=== PATIENT | male | born 1975 | race Caucasian/White ===

== ENCOUNTER 2016-09-16 18:29 | Emergency (ER) | payer MEDICAID ==
[~2016-09-16] VITALS: Wt 98.6 kg
[2016-09-16] MEDS ORDERED: MECLIZINE 12.5 MG TAB PO ONE (20:30)
--- NOTE | 2016-09-16 20:41 | RADRPT ---
PROCEDURE: XR Chest. CLINICAL INDICATION: Chest pain TECHNIQUE: Single frontal view of the chest was obtained COMPARISON: None FINDINGS: The heart and mediastinum are within normal limits. The lungs are clear. There is no pleural effusion or pneumothorax. IMPRESSION: No acute disease. RPTAT: [facility] Physician Luisa Date Time Electronically viewed and signed by Leti Faust Physician on 09/16/2016 20:40 RS/
[2016-09-16] MEDS ORDERED: ALPRAZOLAM 0.25 MG TAB PO ONE (21:00)
[2016-09-16] MEDS ORDERED: MECL12.574 PO (21:00)
[2016-09-16 21:47] VITALS: BP 124/85; PULSE 70; RESP 18
--- NOTE | 2016-09-16 22:46 | ERD ---
ER Documentation Chief Complaint Date/Time DATE: 09/16/16 TIME: 22:44 Chief Complaint CHEST PAIN AND DIZZINESS SINCE LAST NIGHT. NO SOB NO DIAPHORESIS HPI Patient is a 41-year-old male with no medical problems who presents with dizziness. The patient had dizziness and chest pain. The symptoms started 1 day ago. Patient has not passed out. The patient feels anxious and has palpitations. The patient has had anxiety for the past 2 years. He also complains of a mild headache which was gradual in onset. Upon review of old medical records this is the patient's first visit to the emergency department. ROS All systems reviewed and are negative except as per history of present illness. Medications Home Meds Active Scripts Meclizine Hcl* (Antivert*) 12.5 Mg Tab, 25 MG PO Q6H Y for DIZZINESS, #20 TAB Prov:REMEDIOS MATAMOROS MD 09/16/16 Allergies Allergies: Coded Allergies: No Known Allergy (Unverified , 09/16/16) PMhx/Soc Medical and Surgical Hx: pt denies Surgical Hx Hx Psychiatric Problems: Yes (anxiety x 2 years) Hx Alcohol Use: Yes (previous drinker) Hx Substance Use: No Hx Tobacco Use: Yes (previous smoker) Smoking Status: Former smoker FmHx Family History: No diabetes Physical Exam Vitals Vital Signs Date Time Temp Pulse Resp B/P Pulse Ox O2 Delivery O2 Flow Rate FiO2 09/16/16 21:47 70 18 124/85 97 Room Air 09/16/16 20:16 68 18 135/90 97 Room Air 09/16/16 18:54 98.8 80 21 147/81 98 Physical Exam Const: No acute distress Head: Atraumatic Eyes: Normal Conjunctiva ENT: Normal External Ears, Nose and Mouth. Neck: Full range of motion..~ No meningismus. Resp: Clear to auscultation bilaterally Cardio: Regular rate and rhythm, no murmurs Abd: Soft, non tender, non distended. Normal bowel sounds Skin: No petechiae or rashes Back: No midline or flank tenderness Ext: No cyanosis, or edema Neur: Awake and alert, no slurred speech, no nerves II through XII are intact , strength is 5 out of 5 in all 4 extremities Psych: Anxious Results 24 hrs Laboratory Tests Test 09/16/16 20:42 Bedside Glucose 86mg/dL Current Medications Medications (Trade) Dose Ordered Sig/Casey Route PRN Reason Start Time Stop Time Status Last Admin Dose Admin Meclizine HCl (Antivert) 25 mg ONCE ONCE PO 09/16/16 20:30 09/16/16 20:31 DC 09/16/16 20:44 Alprazolam (Xanax) 0.5 mg ONCE ONCE PO 09/16/16 21:00 09/16/16 21:01 DC 09/16/16 21:38 Procedures/MDM EKG read by me: Rate/Rhythm: Regular rate and rhythm at a normal rate Intervals: Normal Impression: No evidence of ischemia or arrhythmia Chest x-ray negative per radiology. Accu-Chek is normal. Patient is a 41-year-old male with no medical problems who presents with dizziness and chest pain. EKG and chest x-ray were negative. I doubt acute coronary syndrome, pneumonia, pneumothorax, pulmonary embolism, or aortic dissection. I doubt stroke or intracranial mass or hemorrhage. The patient will be discharged home and can follow-up with the primary doctor within 24-48 hours. The patient will be given a prescription for meclizine. The patient can return sooner for any worsening symptoms. Departure Diagnosis: Primary Impression: Dizziness Additional Impression: Chest pain Chest pain type: unspecified Qualified Code: R07.9 - Chest pain, unspecified type Condition: Fair Patient Instructions: Chest Pain, Uncertain Cause, Dizziness, Unk Cause Referrals: Dr. Loya Additional Instructions: Call your primary care doctor TOMORROW for an appointment during the next 1-2 days.See the doctor sooner or return here if your condition worsens before your appointment time. REMEDIOS MATAMOROS MD Sep 16, 2016 22:46
== END 2016-09-16 21:47 | disposition home or self-care (01) ==
LOC: E/R 18:29
DX: R42 Dizziness and giddiness (principal); R07.9 Chest pain, unspecified; Z87.891 Personal history of nicotine dependence
CPT/HCPCS: 71010; 82962; Z7502; Z7610; 93005

== ENCOUNTER 2016-11-29 10:40 | Emergency (ER) | payer MEDICAID ==
[~2016-11-29] VITALS: Ht 167.6 cm; Wt 96.0 kg
[~2016-11-29 10:40] MED LIST: MECL12.574 PO
[2016-11-29 10:43] VITALS: Ht 167.6 cm; Wt 96.0 kg
[2016-11-29] MEDS ORDERED: ONDANSETRON 4 MG INJ IV STA (11:31)
[2016-11-29] MEDS ORDERED: SOD CHLORIDE 0.9% 1,000 ML IV ONE (12:00)
[2016-11-29] MEDS ORDERED: MECLIZINE 12.5 MG TAB PO ONE ×2 (12:00→16:30)
[2016-11-29 12:05] LABS: ADD SCAN DIFF NO
[2016-11-29 12:07] LABS: BASOPHILS % 0.1 % (0.0-2.0); EOSINOPHILS # 0.1 10^3/ul (0.0-0.5); HEMATOCRIT 45.1 % (42.0-52.0); HEMOGLOBIN 15.1 g/dl (14.0-18.0); LYMPHOCYTES # 2.7 10^3/ul (0.8-2.9); LYMPHOCYTES % 38.7 % (15.0-51.0); MEAN CORPUSCULAR HGB CONC 33.5 g/dl (32.0-37.0); MEAN CORPUSCULAR VOLUME 86.7 fl (82.0-101.0); MEAN PLATELET VOLUME 9.8 fl (7.4-10.4); MONOCYTE # 0.7 10^3/ul (0.3-0.9); MONOCYTES % 9.4 % (0.0-11.0); NEUTROPHIL # 3.5 10^3/ul (1.6-7.5); NEUTROPHILS % 49.7 % (39.0-77.0); PLATELET COUNT 162 10^3/UL (140-415); RED CELL DISTRIBUTION WIDTH 12.9 % (11.5-14.5)
--- NOTE | 2016-11-29 12:16 | RADRPT ---
PROCEDURE: CT Brain without contrast. CLINICAL INDICATION: Vertigo, dizziness, headache and bilateral numbness times 4 days. TECHNIQUE: A CT of the brain was performed on a GE [employer] 64-slice CT scanner utilizing axial imaging from the skull base through the vertex without IV contrast. Multiplanar reformatted images were made. Images were reviewed on a PACS workstation. The CTDIvol is 43.68 mGy and the DLP is 630 .2 mGycm. One or the following dose reduction techniques were used: -Automated exposure control. -Adjustment of the mA and/or KV according to patient's size. -Use of iterative reconstruction technique COMPARISON: None FINDINGS: There is no intracranial hemorrhage, mass effect, or midline shift. No extra-axial fluid collection is seen. The ventricles and sulci are normal in size and configuration. The density of the brain is normal, and the bonilla white matter differentiation appears well-preserved. The visualized paranasal sinuses and osseous structures are grossly unremarkable. IMPRESSION: 1. No evidence of acute intracranial pathology. 2. The brain is normal in appearance. RPTAT: [facility] Physician Katie Date Time Electronically viewed and signed by Physician Katie on 11/29/2016 12:16 /
[2016-11-29 12:24] LABS: CHLORIDE 103 mmol/L (97-110); INR 1.04; POTASSIUM 3.9 mmol/L (3.5-5.1); PROTIME 13.6 Sec (12.2-14.2); PT RATIO 1.1; SODIUM 140 mmol/L (135-144)
[2016-11-29 12:25] LABS: PARTIAL THROMBOPLASTIN TIME 31.5 Sec (25.0-35.0)
[2016-11-29 12:27] LABS: ANION GAP 14 (8-16); BLOOD UREA NITROGEN 12 mg/dl (7-20); CALCIUM 8.5 mg/dl (8.4-10.2); CARBON DIOXIDE 27 mmol/L (21-31); GLUCOSE 95 mg/dl (70-220)
--- NOTE | 2016-11-29 12:33 | RADRPT ---
PROCEDURE: XR Chest. CLINICAL INDICATION: chest pain TECHNIQUE: Single frontal view of the chest was obtained COMPARISON: 09/16/2016 FINDINGS: The heart and mediastinum are within normal limits. There are mild patchy bilateral perihilar increased interstitial changes. There is no pleural effusion or pneumothorax. RPTAT: AA IMPRESSION: Mild bilateral perihilar increased interstitial changes. .Taras Trevino MD, MD Date Time Electronically viewed and signed by .Taras Trevino MD, on 11/29/2016 12:33 .S/
[2016-11-29 12:40] LABS: TROPONIN-I < 0.012 ng/ml (0.00-0.12)
[2016-11-29] MEDS ORDERED: SIMV40TA7 PO (14:02)
[2016-11-29] MEDS ORDERED: morphine 4 MG/ML VIAL IV STA (15:08)
[2016-11-29] MEDS ORDERED: ASPIRIN 325 MG TAB PO ONE (15:30)
[2016-11-29] MEDS ORDERED: MECL-77 PO (18:10)
[2016-11-29] MEDS ORDERED: ALPR0.5T PO (18:10)
--- NOTE | 2016-11-29 18:27 | ERD ---
ER Documentation Chief Complaint Date/Time DATE: 11/29/16 TIME: 18:17 Chief Complaint chest pain and headache x 4 days, numbness to both arms HPI This 41-year-old male presents with headache it has been gradually increasing for 4 days with no history of trauma. He describes it as a headache that is both in the back and the front of his head is bandlike. He also complains of chest pain, palpitations and occasional shortness of breath. He also states feeling very afraid. Also states that he has a sensation at the room is spinning. This is what is scaring him the most. He denies any medical problems states is otherwise healthy except for recent diagnosis of mild hypercholesterolemia for which he was prescribed medication. Patient's significant other later showed up in is wondering if this patient's symptoms could be result of anxiety as she has noted him to be anxious under a lot of stress. ROS All systems reviewed and are negative except as per history of present illness. Medications Home Meds Active Scripts Alprazolam* (Xanax*) 0.5 Mg Tab, 0.5 MG PO Q8H Y for ANXIETY, #5 TAB Prov:KARL FARMER DO 11/29/16 Meclizine Hcl* (Meclizine Hcl*) 25 Mg Tablet, 25 MG PO Q8H Y for DIZZINESS, #27 TAB Prov:KARL FARMER DO 11/29/16 Reported Medications Simvastatin (Simvastatin) 40 Mg Tablet, 40 MG PO QHS, #30 11/29/16 Discontinued Scripts Meclizine Hcl* (Antivert*) 12.5 Mg Tab, 25 MG PO Q6H Y for DIZZINESS, #20 TAB Prov:REMEDIOS MATAMOROS MD 09/16/16 Allergies Allergies: Coded Allergies: No Known Allergy (Unverified , 09/16/16) PMhx/Soc Medical and Surgical Hx: pt denies Medical Hx, pt denies Surgical Hx Hx Psychiatric Problems: Yes (anxiety x 2 years) Hx Alcohol Use: Yes (previous drinker) Hx Substance Use: No Hx Tobacco Use: Yes (previous smoker) Smoking Status: Current every day smoker Physical Exam Vitals Vital Signs Date Time Temp Pulse Resp B/P Pulse Ox O2 Delivery O2 Flow Rate FiO2 11/29/16 16:48 97.8 50 16 118/64 Room Air 11/29/16 10:43 97.2 55 18 123/75 97 Physical Exam Const: [] Head: Atraumatic Eyes: Normal Conjunctiva ENT: Normal External Ears, Nose and Mouth. Neck: Full range of motion..~ No meningismus. Resp: Clear to auscultation bilaterally Cardio: Regular rate and rhythm, no murmurs Abd: Soft, non tender, non distended. Normal bowel sounds Skin: No petechiae or rashes Back: No midline or flank tenderness Ext: No cyanosis, or edema Neur: Awake and alert Psych: Normal Mood and Affect Result Diagram: 11/29/16 1150 11/29/16 1150 Results 24 hrs Laboratory Tests Test 11/29/16 11:50 White Blood Count 7.010^3/ul Red Blood Count 5.2010^6/ul Hemoglobin 15.1g/dl Hematocrit 45.1% Mean Corpuscular Volume 86.7fl Mean Corpuscular Hemoglobin 29.0pg Mean Corpuscular Hemoglobin Concent 33.5g/dl Red Cell Distribution Width 12.9% Platelet Count 06665^3/UL Mean Platelet Volume 9.8fl Neutrophils % 49.7% Lymphocytes % 38.7% Monocytes % 9.4% Eosinophils % 2.0% Basophils % 0.1% Nucleated Red Blood Cells % 0.0/100WBC Neutrophils # 3.510^3/ul Lymphocytes # 2.710^3/ul Monocytes # 0.710^3/ul Eosinophils # 0.110^3/ul Basophils # 0.010^3/ul Nucleated Red Blood Cells # 0.010^3/ul Prothrombin Time 13.6Sec Prothrombin Time Ratio 1.1 INR International Normalized Ratio 1.04 Activated Partial Thromboplast Time 31.5Sec Sodium Level 140mmol/L Potassium Level 3.9mmol/L Chloride Level 103mmol/L Carbon Dioxide Level 27mmol/L Anion Gap 14 Blood Urea Nitrogen 12mg/dl Creatinine 0.70mg/dl Glucose Level 95mg/dl Calcium Level 8.5mg/dl Troponin I < 0.012ng/ml Current Medications Medications (Trade) Dose Ordered Sig/Casey Route PRN Reason Start Time Stop Time Status Last Admin Dose Admin Meclizine HCl (Antivert) 25 mg ONCE ONCE PO 11/29/16 12:00 11/29/16 12:01 DC 11/29/16 12:19 Ondansetron HCl 4 mg 4 mg ONCE STAT IV 11/29/16 11:31 11/29/16 11:44 DC 11/29/16 12:19 Sodium Chloride (NS) 1,000 ml @ 1,000 mls/hr Q1H ONCE IV 11/29/16 12:00 11/29/16 12:59 DC 11/29/16 12:19 Aspirin (Aspirin) 325 mg ONCE ONCE PO 11/29/16 15:30 11/29/16 15:31 DC 11/29/16 15:17 Morphine Sulfate (morphine) 4 mg ONCE STAT IV 11/29/16 15:08 11/29/16 15:09 DC 11/29/16 15:17 Meclizine HCl (Antivert) 25 mg ONCE ONCE PO 11/29/16 16:30 11/29/16 16:31 DC 11/29/16 16:47 Procedures/MDM Patient with multiple symptoms that were almost completely resolved in the emergency room patient had a bandlike sensation headache consistent with attention headache. He was given a headache cocktail and Zofran, Benadryl, IV fluid. His headache decreased dramatically. Also stated he had a sensation of vertigo. He was given Antivert which made him feel much better about this. Also described chest pain. Full workup for her chest pain had been obtained prior to girlfriends arrival to state that the patient does have a prominent anxiety and stress. Symptoms may be related to this as patient had a nonischemic workup but does have Q waves in his inferior leads indicating possible old ischemic injury. Troponin is negative. Patient's head CT is negative. I have low suspicion for subarachnoid hemorrhage is a headache was gradual in onset. Very low suspicion for acute CVA to the patient's lack of risk factors as well as ease in resolving his symptoms. Aspirin given a 3 and 25 mg aspirin. I am still having him follow-up with his primary care doctor in the next couple of days giving him instructions to obtain both an ENT referral and echocardiogram. He verbalizes understanding of these instructions. He is to return to the emergency room for any acute changes or return of symptoms. Discharging him with 5.5 mg Xanax as well as Antivert. EKG interpretation #1: Sinus bradycardia rate of 59, normal axis, normal intervals, no ST or T-wave changes concerning for acute ischemia however there are Q waves in inferior leads. EKG interpretation #2: Sinus bradycardia rate of 51, normal axis, normal intervals, no ST or T-wave changes concerning for acute ischemia. 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 Departure Diagnosis: Primary Impression: Vertigo Additional Impressions: Headache Chest pain Condition: Stable Patient Instructions: Self-Care for Headaches, Chest Pain, Uncertain Cause, Vertigo, Unspecified Additional Instructions: Llame al doctor MAANA y isabel vania ANNABELLA PARA DENTRO DE 1-2 ANDRADE. Consigue un referral para un ECHOCARDIOGRAMA y doctor de ENTDgale a la secretaria que nosotros le instruimos hacer esta annabella.Avise o llame si armijo condicin se empeora antes de la annabella. Regresa aqui si peor o no mejor. KARL FARMER DO November 29, 2016 18:27
[2016-11-29 18:50] VITALS: BP 115/63; PULSE 52; RESP 16; TEMP 98.1
== END 2016-11-29 18:54 | disposition home or self-care (01) ==
LOC: E/R 10:40
DX: R42 Dizziness and giddiness (principal); R51 Headache; F17.210 Nicotine dependence, cigarettes, uncomplicated
CPT/HCPCS: 70450; 71010; 80048; 84484; 85025; 85610; 85730; 93005; J2270; J2405; J7030; Z7610

== ENCOUNTER 2017-11-15 00:57 | Emergency (ER) | END 2017-11-15 03:20 | disposition home or self-care (01) ==